=== PATIENT | female | born 1990 | race Hispanic/Latino ===

== ENCOUNTER 2023-01-20 09:05 | Inpatient (IN) | payer MEDICAID, OTHER ==
[~2023-01-20] VITALS: Ht 152.4 cm; Wt 69.4 kg
[2023-01-20] MEDS ORDERED: CEFAZOLIN SODIUM 1 GM VIAL IVPB PRN (09:30)
[2023-01-20] MEDS ORDERED: LACTATED RINGERS 1000ML 1,000 ML IV SCH (09:30)
[2023-01-20 10:06] LABS: HEMATOCRIT 40.2 % (36-48); MEAN CORPUSCULAR HEMOGLOBIN 31.8 pg (27.0-33.0); MEAN CORPUSCULAR HGB CONC 33.6 g/dL (32.0-36.0); MEAN CORPUSCULAR VOLUME 94.6 fL (79-99); RED BLOOD CELL COUNT(AUTO) 4.25 MIL/uL (4.00-5.50); WHITE BLOOD COUNT (AUTO) 8.6 K/uL (4.8-10.8)
[2023-01-20] MEDS ORDERED: FENTANYL CITRATE PF 50 MCG/1 ML 2ML VIAL ONE ×2 (11:37→11:50)
[2023-01-20] MEDS ORDERED: MORPHINE PF 100MG/10ML AMP IV ONE (11:54)
[2023-01-20] MEDS ORDERED: PHENYLEPHRINE HCL 10 MG/ML 1ML VIAL IV ONE (12:02)
[2023-01-20] MEDS ORDERED: CEFAZOLIN SODIUM 2 GM VIAL IVPB ONE (12:10)
[2023-01-20] MEDS ORDERED: ONDANSETRON 4MG INJ ONE (12:24)
[2023-01-20] MEDS ORDERED: OXYTOCIN 10 USP UNITS/ML ONE (12:28)
[2023-01-20] MEDS ORDERED: PROMETHAZINE HCL 25 MG/ML 1ML AMPULE IM PRN (14:30)
[2023-01-20] MEDS ORDERED: DEXTROSE 5 %-0.45 % NACL 1,000 ML IV PRN (14:30)
[2023-01-20] MEDS ORDERED: 0.9%NACL 10ML VIAL IVP PRN (14:30)
[2023-01-20] MEDS ORDERED: OXYTOCIN-LR 30 UNITS/500ML 500 ML IV PRN (14:30)
[2023-01-20] MEDS ORDERED: MEPERIDINE-PF 75 MG/ML SYG IM PRN (14:30)
[2023-01-20 15:06] VITALS: BP 94/61; PULSE 74; RESP 16
[2023-01-20 16:44] VITALS: BP 93/58; PULSE 78; RESP 16
[2023-01-20 19:30] VITALS: BP 138/59; PULSE 71; RESP 20
[2023-01-20] MEDS ORDERED: ACETAMINOPHEN WITH CODEINE 1 TAB TAB PO PRN (20:30)
[2023-01-20 23:14] VITALS: BP 102/59; PULSE 80; RESP 18
[2023-01-21 03:15] VITALS: BP 88/65; PULSE 74; RESP 18
[2023-01-21] MEDS ORDERED: ACETAMINOPHEN 500 MG TABLET PO PRN (04:30)
[2023-01-21] MEDS ORDERED: LORATADINE/PSEUDOEPHED 5/120 MG 1 EACH TAB.SR.12H PO PRN (04:30)
[2023-01-21] MEDS ORDERED: LANOLIN 30GM OINTMENT TP PRN (04:30)
[2023-01-21] MEDS ORDERED: ONDANSETRON 4MG INJ IVP PRN (04:30)
[2023-01-21] MEDS ORDERED: BISACODYL 10 MG SUPP.RECT RC PRN (04:30)
[2023-01-21 06:21] LABS: HEMATOCRIT 35.4 % (36-48); MEAN CORPUSCULAR HEMOGLOBIN 31.4 pg (27.0-33.0); MEAN CORPUSCULAR HGB CONC 33.6 g/dL (32.0-36.0); MEAN CORPUSCULAR VOLUME 93.4 fL (79-99); RED BLOOD CELL COUNT(AUTO) 3.79 MIL/uL (4.00-5.50); RED CELL DISTRIBUTION WIDTH 14.8 % (11.0-15.5); WHITE BLOOD COUNT (AUTO) 9.3 K/uL (4.8-10.8)
[2023-01-21 07:45] VITALS: BP 112/61; PULSE 71; RESP 18
[2023-01-21] MEDS: DOCUSATE SODIUM 100 MG CAP PO SCH ×2 (08:37→21:19)
[2023-01-21] MEDS: SIMETHICONE 80 MG TAB.CHEW PO PRN ×2 (08:37→17:51)
[2023-01-21] MEDS: IBUPROFEN 600 MG TABLET PO PRN ×2 (08:38→17:53)
[2023-01-21] MEDS: HYDROCODONE/ACETAMINOPHEN 5/325 MG TAB PO PRN ×2 (08:41→23:49)
[2023-01-21 12:00] VITALS: BP 89/58; PULSE 77; RESP 18
[2023-01-21 12:01] LABS: RAPID PLASMA REAGIN NONREACTIVE (NONREACTIVE)
[2023-01-21 16:00] VITALS: BP 95/62; PULSE 75; RESP 18
[2023-01-21 19:36] VITALS: BP 94/55; PULSE 80; RESP 18
[2023-01-21 23:49] VITALS: BP 97/59; PULSE 77; RESP 20
[2023-01-22] MEDS: IBUPROFEN 600 MG TABLET PO PRN ×2 (02:34→08:19)
[2023-01-22 03:49] VITALS: BP 96/50; PULSE 51; RESP 18
[2023-01-22 07:50] VITALS: BP 94/64; PULSE 73; RESP 18
[2023-01-22] MEDS: SIMETHICONE 80 MG TAB.CHEW PO PRN (08:16)
[2023-01-22] MEDS: DOCUSATE SODIUM 100 MG CAP PO SCH (08:16)
[2023-01-22] MEDS ORDERED: ACET-2079 PO (10:46)
[2023-01-22 11:55] VITALS: BP 108/73; PULSE 77; RESP 20
== END 2023-01-22 13:15 | disposition home or self-care (01) | DRG 788 ==
LOC: LDH 09:05 → WSH 14:52
PROVIDERS: ADMIT Obstetrics & Gynecology; ATTEND Obstetrics & Gynecology
PROC: 10D00Z1 Extraction of Products of Conception, Low, Open Approach (ICD-10-PCS; principal; 2023-01-20 11:50)
DX: O69.81X0 Labor and delivery complicated by cord around neck, without compression, not applicable or unspecified (principal); O34.211 Maternal care for low transverse scar from previous cesarean delivery; Z3A.39 39 weeks gestation of pregnancy; Z37.0 Single live birth
CPT/HCPCS: 36415; 59510; 83033; 85027; 86592; 86701; 86850; 86900; 86901; 87340; 87390; A4344; G0378; J0690; J2274; J2371; J2405; J2590; J2791; J3010; J7120; A4248; L0625